=== PATIENT | female | born 2005 | race Caucasian/White ===

== ENCOUNTER 2025-05-22 14:20 | Outpatient (CLI) | payer BC, SELFPAY ==
--- NOTE | ~2025-05-22 | MR_ITS ---
MRI of the cervical spine Clinical History: Segmental and somatic dysfunction Technique: Axial T2-weighted and gradient images, and sagittal T1-weighted, T2-weighted, and STIR leatha ges were acquired. Findings: There is no fracture or subluxation of the cervical spine. Vertebral bodies maintain normal height and alignment. No bone marrow signal abnormality seen. At C2-C3, there is no disc bulge or herniation. No spinal canal stenosis, cord compression, or neural foraminal narrowing. At C3-C4, there is minimal osteophyte complex at the left foraminal region with probable minimal left neural foraminal narrowing. Right neural foramen preserved. No canal stenosis or cord compression. At C4-C5, there is no disc bulge or herniation. No spinal canal stenosis, compression, or neural fora sridhar narrowing. At C5-C6, there is minimal disc osteophyte complex. No spinal canal stenosis, cord compression, or ne ural foraminal narrowing. At C6-C7, there is no disc bulge or herniation. No spinal canal stenosis, cord compression, or neural foraminal narrowing. No abnormal signal seen in the spinal cord. Paravertebral soft tissues are unremarkable. Impression: Mild degenerative spondylosis at C3-C4, as above. Reviewed, dictated and finalized at [facility]. Impression: Mild degenerative spondylosis at C3-C4, as above.
== END 2025-05-22 14:21 | disposition home or self-care (01) ==
LOC: GOSHIMG 14:21
PROVIDERS: PCP Family Medicine
DX: M47.812 Spondylosis without myelopathy or radiculopathy, cervical region (principal); M99.01 Segmental and somatic dysfunction of cervical region
CPT/HCPCS: 72141